=== PATIENT | female | born 1995 | race Caucasian/White ===

== ENCOUNTER 2020-01-25 06:53 | Inpatient (IN) | payer OTHER ==
[~2020-01-25 06:53] MED LIST: Misoprostol 50 MCG (1/2 of 100 MCG) Tab VAG ONE
[2020-01-25] MEDS ORDERED: Sodium Chloride 0.9% 10 ML Syringe FLUSH PRN (08:08)
[2020-01-25] MEDS ORDERED: Acetaminophen 325 MG Tab PO PRN (08:08)
--- NOTE | 2020-01-25 08:19 | PCM.LDHP ---
L&D History of Present Illness - General Date of Service: 01/25/20 Admit Problem/Dx: Patient Status Order with Admit Dx/Problem 01/25/20 08:08 Patient Status [ADT] Routine Admission Diagnosis/Problem Admission Diagnosis/Problem - Related Data Allergies/Adverse Reactions: Allergies Allergy/AdvReac Type Severity Reaction Status Date / Time No Known Allergies Allergy Verified 10/09/13 22:24 Home Medications: Home Meds Vit #76/Iron,Carb/Fa [Prenatabs Rx] 1 each PO BEDTIME 12/26/19 [History ] Sertraline [Zoloft] 1 tab PO DAILY 01/25/20 [History] Past Medical History - Past Health History Medical/Surgical History: Denies 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: Reports: - Infectious Disease History Infectious Disease History: Reports: None Social & Family History - Family History Family Medical History: Noncontributory - Tobacco Use Smoking Status *Q: Former Smoker Years of Tobacco use: 10 Packs/Tins Daily: 0.5 Used Tobacco, but Quit: No Second Hand Smoke Exposure: Yes - Caffeine Use Caffeine Use: Reports: None - Recreational Drug Use Recreational Drug Use: No H&P Review of Systems - Review of Systems: Review Of Systems: See Below General: Reports: No Symptoms HEENT: Reports: No Symptoms Pulmonary: Reports: No Symptoms Cardiovascular: Reports: No Symptoms Gastrointestinal: Reports: No Symptoms Genitourinary: Reports: No Symptoms Musculoskeletal: Reports: No Symptoms Skin: Reports: No Symptoms Psychiatric: Reports: No Symptoms Neurological: Reports: No Symptoms Hematologic/Lymphatic: Reports: No Symptoms Immunologic: Reports: No Symptoms L&D Exam - Exam Exam: See Below - Vital Signs Vital Signs: Last Vital Signs Temp 36.1 C 01/25/20 07:20 Pulse 105 H 01/25/20 07:45 Resp 18 01/25/20 07:45 BP 114/86 01/25/20 07:45 Pulse Ox 96 01/25/20 07:45 Weight: 81.647 kg - OB Specific Contraction Frequency (min): 0 Contraction Intensity: Irritability Movement: Active Heart Tones: Present Heart Rate (FHR) Variability: Moderate (6-25 bmp) Presentation: Vertex - Melchor Score Melchor Score Cervix Position: Midposition Melchor Score Consistency: Soft Melchor Score Effacement: 51-70% Melchor Score Dilation: 1-2 cm Melchor Score 's Station: -1 ,0 Melchor Score Total: 8 - Exam General: Alert, Oriented HEENT: PERRLA, Conjunctiva Clear, EACs Clear, EOMI, Hearing Intact, Mucosa Moist & [place], Nares Patent, Normal Nasal Septum, Posterior Pharynx Clear, Pupils Equal, Pupils Reactive, TMs Clear Neck: Supple, Trachea Midline Lungs: Clear to Auscultation, Normal Respiratory Effort Cardiovascular: Regular Rate, Regular Rhythm GI/Abdominal Exam: Normal Bowel Sounds, Soft, Non-Tender, No Organomegaly, No Distention, No Abnormal Bruit, No Mass, Pelvis Stable Rectal Exam: Normal Exam, Normal Rectal Tone Genitourinary: Normal external exam, Normal bimanual exam, Normal speculum exam Back Exam: Normal Inspection, Full Range of Motion Extremities: Normal Inspection, Normal Range of Motion, Non-Tender, No Pedal Edema, Normal Capillary Refill Skin: Warm, Dry, Intact Neurological: Cranial Nerves Intact, Reflexes Equal Bilateral Psychiatric: Alert, Normal Affect, Normal Mood - Patient Data Lab Results Last 24 hrs: Laboratory Results - last 24 hr 01/25/20 01/25/20 Range/Units 07:00 07:27 WBC 9.3 (4.5-11.0) K/uL RBC 4.16 (3.30-5.50) M/uL Hgb 12.1 (12.0-15.0) g/dL Hct 36.7 (36.0-48.0) % MCV 88 (80-98) fL MCH 29 (27-31) pg MCHC 33 (32-36) % Plt Count 238 (150-400) K/uL Neut % (Auto) 69 H (36-66) % Lymph % (Auto) 21 L (24-44) % [place] % (Auto) 9 H (2-6) % Eos % (Auto) 1 L (2-4) % Baso % (Auto) 0 (0-1) % Urine Opiates Screen Negative (NEGATIVE) Ur Oxycodone Screen Negative (NEGATIVE) Urine Methadone Screen Negative (NEGATIVE) Ur Propoxyphene Screen Negative (NEGATIVE) Ur Barbiturates Screen Negative (NEGATIVE) Ur Tricyclics Screen Negative (NEGATIVE) Ur Phencyclidine Scrn Negative (NEGATIVE) Ur Amphetamine Screen Negative (NEGATIVE) U Methamphetamines Scrn Negative (NEGATIVE) Urine MDMA Screen Negative (NEGATIVE) U Benzodiazepines Scrn Negative (NEGATIVE) U Cocaine Metab Screen Negative (NEGATIVE) U Marijuana (THC) Screen Negative (NEGATIVE) Result Diagrams: 01/25/20 07:00 - Problem List (1) SNOMED Code(s): 92693061 ICD Code: Z34.90 - ENCNTR FOR SUPRVSN OF NORMAL , UNSP, UNSP TRIMESTER Status: Acute Current Visit: Yes Qualifiers: Weeks of gestation: 39 weeks Qualified Code(s): Z3A.39 - 39 weeks gestation of (2) Encounter for induction of labor SNOMED Code(s): 018391637 ICD Code: Z34.90 - ENCNTR FOR SUPRVSN OF NORMAL , UNSP, UNSP TRIMESTER Status: Acute Current Visit: Yes (3) History of precipitous delivery SNOMED Code(s): 494682034 ICD Code: Z87.59 - PERSONAL HISTORY OF COMP OF PREG, CHLDBRTH AND THE PUERP Status: Acute Current Visit: Yes Problem List Initiated/Reviewed/Updated: Yes Orders Last 24hrs: Active Orders 24 hr Category Date Time Status Patient Status [ADT] Routine ADT 01/25/20 08:08 Ordered Ambulate [RC] PER UNIT ROUTINE Care 01/25/20 08:08 Ordered Communication Order [RC] ASDIRECTED Care 01/25/20 08:08 Ordered Heart Tones [RC] PER UNIT ROUTINE Care 01/25/20 08:08 Ordered Non Stress Test [RC] Click to Edit Care 01/25/20 08:08 Ordered May Shower [RC] ASDIRECTED Care 01/25/20 08:08 Ordered Notify Provider Vital Signs [RC] PRN Care 01/25/20 08:08 Ordered Notify Provider [RC] PRN Care 01/25/20 08:08 Ordered Up ad Ynes [RC] ASDIRECTED Care 01/25/20 08:08 Ordered Up to Chair [RC] QID Care 01/25/20 08:08 Ordered VTE/DVT Education [RC] Click to Edit Care 01/25/20 08:12 Ordered Vital Signs [RC] PER UNIT ROUTINE Care 01/25/20 08:08 Ordered Regular Diet [DIET] Diet 01/25/20 Breakfast Ordered UA W/MICROSCOPIC [URIN] Routine Lab 01/25/20 07:27 Ordered Acetaminophen [Tylenol] Med 01/25/20 08:08 Ordered 650 mg PO Q4H PRN Oxytocin/Normal Saline [Pitocin in NS 20 Units/1,000 ML Med 01/25/20 08:12 Ordered ] 20 unit in 1,000 ml IV ONETIME Sodium Chloride 0.9% [Saline Flush] Med 01/25/20 08:08 Ordered 10 ml FLUSH ASDIRECTED PRN DVT/VTE Prophylaxis Reflex [OM.PC] Routine Oth 01/25/20 08:08 Ordered Saline Lock Insert [OM.PC] Routine Oth 01/25/20 08:08 Ordered Resuscitation Status Routine Resus Stat 01/25/20 08:08 Ordered Medication Orders Acetaminophen (Tylenol) 650 mg PO Q4H PRN PRN Reason: Pain (Mild 1-3) and fever Oxytocin/Sodium Chloride (Pitocin In Ns 20 Units/1,000 Ml) 20 unit in 1,000 mls @ 999 mls/hr IV ONETIME ONE; Protocol Stop: 01/25/20 09:12 Sodium Chloride (Saline Flush) 10 ml FLUSH ASDIRECTED PRN PRN Reason: Keep Vein Open Assessment/Plan Comment:: 01/25/2020 25 yo here at 39 1/7 weeks gestation for induction of labor due to history of precipitous delivery in less than 30 minutes. Patient also desired and requested induction of labor. SVE-2/75/-1 Cytotec placed vaginally FHTs category one COVID testing done prior and negative Labs-A positive, Hep B neg, Hep C neg, HIV neg, RPR nonreactive, Rubella Immune , GBS neg, Hgb-12.1 Plan- Monitor for active labor Monitor FHTs Pain management per patient request Patient may eat regular diet Patient may be up ad ynes Patient may tub bath Plan and anticipate a vaginal delivery
[2020-01-25] MEDS ORDERED: Misoprostol 25 MCG (1/4 of 100 MCG) Tab VAG ONE (11:41)
--- NOTE | 2020-01-25 14:10 | PCM.PNLD ---
Labor Progress Note - VS & Meds Vital Signs: Last Vital Signs Temp 36.6 C 01/25/20 11:50 Pulse 85 01/25/20 11:50 Resp 18 01/25/20 11:50 BP 133/77 01/25/20 11:50 Pulse Ox 99 01/25/20 11:50 Active Medications: Current Medications Acetaminophen (Tylenol) 650 mg PO Q4H PRN PRN Reason: Pain (Mild 1-3) and fever Sodium Chloride (Saline Flush) 10 ml FLUSH ASDIRECTED PRN PRN Reason: Keep Vein Open Discontinued Medications Oxytocin/Sodium Chloride (Pitocin In Ns 20 Units/1,000 Ml) 20 unit in 1,000 mls @ 999 mls/hr IV ONETIME ONE; Protocol Stop: 01/25/20 09:12 Oxytocin/Sodium Chloride (Pitocin In Ns 20 Units/1,000 Ml) Confirm Administered Dose 20 unit in 1,000 mls @ as directed .ROUTE .STK-MED ONE Stop: 01/25/20 13:49 Misoprostol (Cytotec) 50 mcg VAG ONETIME ONE Stop: 01/25/20 06:46 Last Admin: 01/25/20 07:28 Dose: 50 mcg Misoprostol (Cytotec) 25 mcg VAG ONETIME ONE Stop: 01/25/20 11:42 Last Admin: 01/25/20 12:03 Dose: Not Given - Uterine Contractions Uterine Monitoring Mode: External [place] Contraction Frequency (min): 1.5 Contraction Duration (sec): 30-50 Contraction Intensity: Mild Uterine Resting Tone: Soft - Monitoring Monitor Mode: External Ultrasound Heart Rate (FHR) Variability: Moderate (6-25 bmp) Accelerations: Present, 15x15 - Vaginal Exam Dilation (cm): 5-6 Effacement (Percent): 90 Station: -1 Cervical Position: Anterior Sterile Vaginal Exam Performed By: Salina Singh - Labor Progress (Free Text) Labor Progress: 01/25/2020 Patient progressing nicely. AROM clear fluid earlier. Now SVE5-6/90/-1 and requesting nitrous. Nitrous started FHTs category one Plan- Continue to monitor labor Continue to monitor FHTs Nitrous for pain control Patient may be up as tolerated near bed with nitrous Position patient for comfort Plan and anticipate a vaginal delivery
[2020-01-25] MEDS ORDERED: Lidocaine 1% 50 ML MDV ONE (14:34)
[2020-01-25] MEDS ORDERED: Lanolin 100% Cream 40 GM Tube TOP ONE (14:56)
[2020-01-25] MEDS ORDERED: Witch Hazel Medicated Pads 100/Jar TOP ONE (14:56)
[2020-01-25] MEDS ORDERED: Ibuprofen 200 MG Tab, 24 Tab Bulk Bottle PO PRN (14:56)
[2020-01-25] MEDS ORDERED: Benzocaine 20% Top Spray 56 GM Bottle TOP ONE (14:56)
[2020-01-25] MEDS ORDERED: Docusate Sodium 100 MG Cap PO PRN (14:56)
[2020-01-25] MEDS ORDERED: Acetaminophen 325 MG Tab, 50 Tab Bulk Bottle PO PRN (14:56)
--- NOTE | 2020-01-25 17:41 | PCM.DEL ---
L & D Note - General Info Date of Service: 01/25/20 Mother's Due Date: 02/01/20 - Delivery Note Labor: Augmented by ARM Cervical Ripening Method: Misoprostil Delivery Outcome: Livebirth Delivery Method: Spontaneous Vaginal Delivery-Single Infant Delivery Mode: Spontaneous Presentation: Left Occiput Anterior (JULIETTE) Nuchal Cord: None Anesthesia Type: Nitrous Oxide Amniotic Fluid Description: Clear Episiotomy Type: None Laceration: None Placenta: Intact, Spontaneous Cord: 3 Vessels Estimated Blood Loss: 250 Resuscitation Needed: No [place]: Bulb Syringe, Stimulated, Warmed Score 1 min: 9 Score 5 min: 9 Second Stage Interventions: Reports: Second Nurse Assessed Progress of Descent, Second Nurse Reviewed Contraction Pattern, Second Nurse Reviewed Heart Tones, Encouragement Given, Pushing Effectively, Pushing, McRobert's Position Delivery Comments (Free Text/Narrative):: 01/25/2020 25 yo delivered a viable female at 39 0/7 gestational weeks normals spontaneous vaginal delivery at 1444 on 01/25/2020 over and intact perineum in JULIETTE position. Patient pushed through two contractions and then infant was placed on prewarmed blanket on mother's abdomen, delayed cord clamping was done for approximately 90 seconds, then cord was double clamped and cut by father of the infant. APGARS-9/9, weight 6lbs 9oz, length-19.5 inches. then began to be dried and stimulated more and began to cry vigorously and pink in color. Placenta then came intact, ivory, EBL-250ml, 3 vessel cord. No lacerations noted of vagina, perineum, rectum, or cervix. Infant now skin to skin with mother and both stable in labor and delivery room. Stages of labor- 1st [id number] 2nd [id number] 3rd [id number] - General Info Date of Service: 01/25/20 Functional Status: Reports: Pain Controlled - Review of Systems General: Reports: No Symptoms HEENT: Reports: No Symptoms Pulmonary: Reports: No Symptoms Cardiovascular: Reports: No Symptoms Gastrointestinal: Reports: No Symptoms Genitourinary: Reports: No Symptoms Musculoskeletal: Reports: No Symptoms Skin: Reports: No Symptoms Neurological: Reports: No Symptoms Psychiatric: Reports: No Symptoms - Patient Data Vitals - Most Recent: Last Vital Signs Temp 37.1 C 01/25/20 14:00 Pulse 79 01/25/20 16:30 Resp 16 01/25/20 16:30 BP 133/71 01/25/20 16:30 Pulse Ox 98 01/25/20 16:30 Weight - Most Recent: 81.647 kg Lab Results Last 24 Hours: Laboratory Results - last 24 hr 01/25/20 01/25/20 01/25/20 Range/Units 07:00 07:27 07:27 WBC 9.3 (4.5-11.0) K/uL RBC 4.16 (3.30-5.50) M/uL Hgb 12.1 (12.0-15.0) g/dL Hct 36.7 (36.0-48.0) % MCV 88 (80-98) fL MCH 29 (27-31) pg MCHC 33 (32-36) % Plt Count 238 (150-400) K/uL Neut % (Auto) 69 H (36-66) % Lymph % (Auto) 21 L (24-44) % [place] % (Auto) 9 H (2-6) % Eos % (Auto) 1 L (2-4) % Baso % (Auto) 0 (0-1) % Urine Color Yellow (YELLOW) Urine Appearance Slightly cloudy A (CLEAR) Urine pH 7.0 (5.0-8.0) Ur Specific Carbon 1.020 (1.008-1.030) Urine Protein Negative (NEGATIVE) mg/dL Urine Glucose (UA) Negative (NEGATIVE) mg/dL Urine Ketones Negative (NEGATIVE) mg/dL Urine Occult Blood Negative (NEGATIVE) Urine Nitrite Negative (NEGATIVE) Urine Bilirubin Negative (NEGATIVE) Urine Urobilinogen 0.2 (0.2-1.0) EU/dL Ur Leukocyte Esterase Small H (NEGATIVE) Urine RBC 0-5 (0-5) Urine WBC 0-5 (0-5) Ur Epithelial Cells Few Amorphous Sediment Few Urine Bacteria Few Urine Mucus Not seen Urine Opiates Screen Negative (NEGATIVE) Ur Oxycodone Screen Negative (NEGATIVE) Urine Methadone Screen Negative (NEGATIVE) Ur Propoxyphene Screen Negative (NEGATIVE) Ur Barbiturates Screen Negative (NEGATIVE) Ur Tricyclics Screen Negative (NEGATIVE) Ur Phencyclidine Scrn Negative (NEGATIVE) Ur Amphetamine Screen Negative (NEGATIVE) U Methamphetamines Scrn Negative (NEGATIVE) Urine MDMA Screen Negative (NEGATIVE) U Benzodiazepines Scrn Negative (NEGATIVE) U Cocaine Metab Screen Negative (NEGATIVE) U Marijuana (THC) Screen Negative (NEGATIVE) Med Orders - Current: Current Medications Acetaminophen (Tylenol Bulk Bottle) 325 - 650 mg PO Q4H PRN PRN Reason: Pain Last Admin: 01/25/20 16:35 Dose: 1 bottle Docusate Sodium (Colace) 100 mg PO BID PRN PRN Reason: Constipation Ibuprofen (Motrin Bulk Bottle) 600 mg PO Q6H PRN PRN Reason: Pain Last Admin: 01/25/20 16:35 Dose: 1 bottle Sodium Chloride (Saline Flush) 10 ml FLUSH ASDIRECTED PRN PRN Reason: Keep Vein Open Discontinued Medications Acetaminophen (Tylenol) 650 mg PO Q4H PRN PRN Reason: Pain (Mild 1-3) and fever Benzocaine (Isnr-W-Phconrz 20% Ledbetter) 0 gm TOP ONETIME ONE Stop: 01/25/20 14:57 Last Admin: 01/25/20 16:34 Dose: 1 spray Emollient Ointment (Lansinoh Hpa) 0 gm TOP ONETIME ONE Stop: 01/25/20 14:57 Last Admin: 01/25/20 16:34 Dose: 1 applic Oxytocin/Sodium Chloride (Pitocin In Ns 20 Units/1,000 Ml) 20 unit in 1,000 mls @ 999 mls/hr IV ONETIME ONE; Protocol Stop: 01/25/20 09:12 Last Admin: 01/25/20 14:50 Dose: 999 ml/hr, 999 mls/hr Oxytocin/Sodium Chloride (Pitocin In Ns 20 Units/1,000 Ml) Confirm Administered Dose 20 unit in 1,000 mls @ as directed .ROUTE .STK-MED ONE Stop: 01/25/20 13:49 Last Admin: 01/25/20 16:34 Dose: Not Given Lidocaine HCl (Xylocaine 1%) Confirm Administered Dose 50 ml .ROUTE .STK-MED ONE Stop: 01/25/20 14:35 Last Admin: 01/25/20 16:34 Dose: Not Given Misoprostol (Cytotec) 50 mcg VAG ONETIME ONE Stop: 01/25/20 06:46 Last Admin: 01/25/20 07:28 Dose: 50 mcg Misoprostol (Cytotec) 25 mcg VAG ONETIME ONE Stop: 01/25/20 11:42 Last Admin: 01/25/20 12:03 Dose: Not Given [place]hiraz Danna (Tucks) 1 pad TOP ONETIME ONE Stop: 01/25/20 14:57 Last Admin: 01/25/20 16:35 Dose: 1 pad - Exam General: Alert, Oriented, Cooperative HEENT: Pupils Equal, Pupils Reactive, EOMI, Mucous Membr. Moist/[place] Neck: Supple Lungs: Clear to Auscultation, Normal Respiratory Effort Cardiovascular: Regular Rate, Regular Rhythm GI/Abdominal Exam: Normal Bowel Sounds, Soft, Non-Tender, No Organomegaly, No Distention, No Abnormal Bruit, No Mass, Pelvis Stable (Female) Exam: Normal External Exam, Normal Speculum Exam, Normal Bimanual Exam, Enlarged Uterus, Vaginal Bleeding Back Exam: Normal Inspection, Full Range of Motion Extremities: Normal Inspection, Normal Range of Motion, Non-Tender, No Pedal Edema, Normal Capillary Refill Skin: Warm, Dry, Intact Neurological: No New Focal Deficit Psy/Mental Status: Alert, Normal Affect, Normal Mood - Problem List & Annotations (1) SNOMED Code(s): 46326520 Code(s): Z34.90 - ENCNTR FOR SUPRVSN OF NORMAL , UNSP, UNSP TRIMESTER Status: Acute Current Visit: Yes Qualifiers: Weeks of gestation: 39 weeks Qualified Code(s): Z3A.39 - 39 weeks gestation of (2) Encounter for induction of labor SNOMED Code(s): 222752180 Code(s): Z34.90 - ENCNTR FOR SUPRVSN OF NORMAL , UNSP, UNSP TRIMESTER Status: Acute Current Visit: Yes (3) History of precipitous delivery SNOMED Code(s): 121700826 Code(s): Z87.59 - PERSONAL HISTORY OF COMP OF PREG, CHLDBRTH AND THE PUERP Status: Acute Current Visit: Yes (4) Vaginal delivery SNOMED Code(s): 287599862 Code(s): O80 - ENCOUNTER FOR FULL-TERM UNCOMPLICATED DELIVERY Status: Acute Current Visit: Yes (5) () SNOMED Code(s): 580297958 Code(s): Z78.9 - OTHER SPECIFIED HEALTH STATUS Status: Acute Current Visit: Yes - Problem List Review Problem List Initiated/Reviewed/Updated: Yes - My Orders Last 24 Hours: My Active Orders 01/25/20 08:08 Patient Status [ADT] Routine Ambulate [RC] PER UNIT ROUTINE Communication Order [RC] ASDIRECTED May Shower [RC] ASDIRECTED Notify Provider Vital Signs [RC] PRN Notify Provider [RC] PRN Up ad Terri [RC] ASDIRECTED Up to Chair [RC] QID Vital Signs [RC] PER UNIT ROUTINE Sodium Chloride 0.9% [Saline Flush] 10 ml FLUSH ASDIRECTED PRN DVT/VTE Prophylaxis Reflex [OM.PC] Routine Saline Lock Insert [OM.PC] Routine Resuscitation Status Routine 01/25/20 08:12 VTE/DVT Education [RC] Click to Edit 01/25/20 13:45 Communication Order [RC] Per Unit Routine Communication Order [RC] Per Unit Routine Communication Order [RC] Per Unit Routine Oxygen Therapy [RC] ASDIRECTED Pulse Oximetry [RC] ASDIRECTED Verify Patient Consent Obtain [RC] ASDIRECTED Vital Signs [RC] PER UNIT ROUTINE Medication Discontinuation Instructions [OM.PC] Routine 01/25/20 14:56 Patient Status [ADT] Routine Vital Signs [RC] PFP Acetaminophen [Tylenol Bulk Bottle] 325 - 650 mg PO Q4H PRN Docusate Sodium [Colace] 100 mg PO BID PRN Ibuprofen [Motrin Bulk Bottle] 600 mg PO Q6H PRN Assess Lochia [WOMSER] Per Unit Routine Assess Uterine Involution [WOMSER] Per Unit Routine 01/25/20 14:57 Perineal Care [OM.PC] Per Unit Routine Sitz Bath [OM.PC] Per Unit Routine 01/25/20 Breakfast Regular Diet [DIET] 01/26/20 06:00 CBC WITH AUTO DIFF [HEME] Routine - Assessment Assessment:: 01/25/2020 25 yo G3 now P3 without complications - Plan Plan:: 01/25/2020 25 yo here at 39 1/7 weeks gestation for induction of labor due to history of precipitous delivery in less than 30 minutes. Patient also desired and requested induction of labor. SVE-2/75/-1 Cytotec placed vaginally FHTs category one COVID testing done prior and negative Labs-A positive, Hep B neg, Hep C neg, HIV neg, RPR nonreactive, Rubella Immune , GBS neg, Hgb-12.1 Plan- Monitor for active labor Monitor FHTs Pain management per patient request Patient may eat regular diet Patient may be up ad terri Patient may tub bath Plan and anticipate a vaginal delivery 01/25/2020 Routine cares Encourage and support Plan a 24-48 hr discharge home if stable
--- NOTE | 2020-01-26 08:46 | PCM.PNPP ---
- General Info Date of Service: 01/26/20 Functional Status: Reports: Pain Controlled - Review of Systems General: Reports: No Symptoms HEENT: Reports: No Symptoms Pulmonary: Reports: No Symptoms Cardiovascular: Reports: No Symptoms Gastrointestinal: Reports: No Symptoms Genitourinary: Reports: No Symptoms Musculoskeletal: Reports: No Symptoms Skin: Reports: No Symptoms Neurological: Reports: No Symptoms Psychiatric: Reports: No Symptoms - General Info Date of Service: 01/26/20 - Patient Data Vital Signs - Most Recent: Last Vital Signs Temp 35.6 C L 01/26/20 08:26 Pulse 68 01/26/20 08:26 Resp 18 01/26/20 08:26 BP 118/65 01/26/20 08:26 Pulse Ox 98 01/26/20 08:26 Weight - Most Recent: 81.647 kg I&O - Last 24 Hours: Intake & Output 01/25/20 01/26/20 01/26/20 22:59 06:59 14:59 Intake Total 240 360 Balance 240 360 Lab Results - Last 24 Hours: Laboratory Results - last 24 hr 01/26/20 Range/Units 05:44 WBC 12.0 H (4.5-11.0) K/uL RBC 3.89 (3.30-5.50) M/uL Hgb 11.2 L (12.0-15.0) g/dL Hct 34.7 L (36.0-48.0) % MCV 89 (80-98) fL MCH 29 (27-31) pg MCHC 32 (32-36) % Plt Count 211 (150-400) K/uL Neut % (Auto) 68 H (36-66) % Lymph % (Auto) 22 L (24-44) % [place] % (Auto) 9 H (2-6) % Eos % (Auto) 1 L (2-4) % Baso % (Auto) 0 (0-1) % Med Orders - Current: Current Medications Acetaminophen (Tylenol Bulk Bottle) 325 - 650 mg PO Q4H PRN PRN Reason: Pain Last Admin: 01/25/20 16:35 Dose: 1 bottle Docusate Sodium (Colace) 100 mg PO BID PRN PRN Reason: Constipation Ibuprofen (Motrin Bulk Bottle) 600 mg PO Q6H PRN PRN Reason: Pain Last Admin: 01/25/20 16:35 Dose: 1 bottle Sodium Chloride (Saline Flush) 10 ml FLUSH ASDIRECTED PRN PRN Reason: Keep Vein Open Discontinued Medications Acetaminophen (Tylenol) 650 mg PO Q4H PRN PRN Reason: Pain (Mild 1-3) and fever Benzocaine (Eqaa-K-Rpojngy 20% [place]) 0 gm TOP ONETIME ONE Stop: 01/25/20 14:57 Last Admin: 01/25/20 16:34 Dose: 1 spray Emollient Ointment (Lansinoh Hpa) 0 gm TOP ONETIME ONE Stop: 01/25/20 14:57 Last Admin: 01/25/20 16:34 Dose: 1 applic Oxytocin/Sodium Chloride (Pitocin In Ns 20 Units/1,000 Ml) 20 unit in 1,000 mls @ 999 mls/hr IV ONETIME ONE; Protocol Stop: 01/25/20 09:12 Last Admin: 01/25/20 14:50 Dose: 999 ml/hr, 999 mls/hr Oxytocin/Sodium Chloride (Pitocin In Ns 20 Units/1,000 Ml) Confirm Administered Dose 20 unit in 1,000 mls @ as directed .ROUTE .STK-MED ONE Stop: 01/25/20 13:49 Last Admin: 01/25/20 16:34 Dose: Not Given Lidocaine HCl (Xylocaine 1%) Confirm Administered Dose 50 ml .ROUTE .STK-MED ONE Stop: 01/25/20 14:35 Last Admin: 01/25/20 16:34 Dose: Not Given Misoprostol (Cytotec) 50 mcg VAG ONETIME ONE Stop: 01/25/20 06:46 Last Admin: 01/25/20 07:28 Dose: 50 mcg Misoprostol (Cytotec) 25 mcg VAG ONETIME ONE Stop: 01/25/20 11:42 Last Admin: 01/25/20 12:03 Dose: Not Given Witch Danna (Tucks) 1 pad TOP ONETIME ONE Stop: 01/25/20 14:57 Last Admin: 01/25/20 16:35 Dose: 1 pad - Infant Interaction Infant Disposition, : in Room with Family Infant Interaction: Holding Feeding: Breastfed ; Nursed Well Support Person: - Recovery Exam Fundal Tone: Firm Fundal Level: At Umbilicus Fundal Placement: Midline Lochia Amount: Small Lochia Color: Rubra/Red Perineum Description: Intact, Minimal Bruising/Swelling Episiotomy/Laceration: None Bladder Status: Nonpalpable Urinary Elimination: Voided - Exam General: Alert, Oriented HEENT: Pupils Equal, Pupils Reactive, Mucous Membr. Moist/[place] Neck: Supple Lungs: Clear to Auscultation, Normal Respiratory Effort Cardiovascular: Regular Rate, Regular Rhythm GI/Abdominal Exam: Normal Bowel Sounds, Soft, Non-Tender, No Organomegaly, No Distention, No Abnormal Bruit, No Mass, Pelvis Stable Extremities: Normal Inspection, Normal Range of Motion, Non-Tender, No Pedal Edema, Normal Capillary Refill Skin: Warm, Dry, Intact Wound/Incisions: Healing Well Neurological: No New Focal Deficit Psy/Mental Status: Alert, Normal Affect, Normal Mood - Problem List & Annotations (1) (infant) SNOMED Code(s): 534773400 Code(s): Z78.9 - OTHER SPECIFIED HEALTH STATUS Status: Acute Current Visit: Yes (2) Encounter for induction of labor SNOMED Code(s): 833664984 Code(s): Z34.90 - ENCNTR FOR SUPRVSN OF NORMAL , UNSP, UNSP TRIMESTER Status: Acute Current Visit: Yes (3) History of precipitous delivery SNOMED Code(s): 254681479 Code(s): Z87.59 - PERSONAL HISTORY OF COMP OF PREG, CHLDBRTH AND THE PUERP Status: Acute Current Visit: Yes (4) SNOMED Code(s): 32662687 Code(s): Z34.90 - ENCNTR FOR SUPRVSN OF NORMAL , UNSP, UNSP TRIMESTER Status: Acute Current Visit: Yes Qualifiers: Weeks of gestation: 39 weeks Qualified Code(s): Z3A.39 - 39 weeks gestation of (5) Vaginal delivery SNOMED Code(s): 780525866 Code(s): O80 - ENCOUNTER FOR FULL-TERM UNCOMPLICATED DELIVERY Status: Acute Current Visit: Yes - Problem List Review Problem List Initiated/Reviewed/Updated: Yes - Assessment Assessment:: 01/25/2020 25 yo G3 now P3 without complications 01/26/20 25 yo day 1 pp, no complications FF, bleeding light Hgb 11.2 going well GBS negative - Plan Plan:: 01/25/2020 25 yo here at 39 1/7 weeks gestation for induction of labor due to history of precipitous delivery in less than 30 minutes. Patient also desired and requested induction of labor. SVE-/-1 Cytotec placed vaginally FHTs category one COVID testing done prior and negative Labs-A positive, Hep B neg, Hep C neg, HIV neg, RPR nonreactive, Rubella Immune , GBS neg, Hgb-12.1 Plan- Monitor for active labor Monitor FHTs Pain management per patient request Patient may eat regular diet Patient may be up ad terri Patient may tub bath Plan and anticipate a vaginal delivery 01/25/2020 Routine cares Encourage and support Plan a 24-48 hr discharge home if stable 01/26/20 Continue routine cares Support Discharge home this afternoon PP warning s/s reviewed with mother 6 week pp check in clinic
== END 2020-01-26 15:15 | disposition home or self-care (01) | DRG 807 ==
LOC: JP.OB 06:56 → OBSVTOIN 14:44 → JP.OB 14:44 → JP.MS 18:29
PROVIDERS: ADMIT Advanced Practice Midwife; ATTEND Advanced Practice Midwife
PROC: 10E0XZZ Delivery of Products of Conception, External Approach (ICD-10-PCS; principal; 2020-01-25)
PROC: 10907ZC Drainage of Amniotic Fluid, Therapeutic from Products of Conception, Via Natural or Artificial Opening (ICD-10-PCS; 2020-01-25)
DX: O80 Encounter for full-term uncomplicated delivery (principal); Z37.0 Single live birth; Z3A.39 39 weeks gestation of pregnancy; Z87.891 Personal history of nicotine dependence; Z87.59 Personal history of other complications of pregnancy, childbirth and the puerperium
CPT/HCPCS: 36415; 59409; 80305-QW; 81001; 85025; A9270-GY; J2590